=== PATIENT | female | born 1955 | race Two or more races ===

== ENCOUNTER 2021-08-28 11:13 | Outpatient (CLI) | payer OTHER ==
[~2021-08-28 11:13] MED LIST: FOSAMAX5 MG; VITAMIN D10000 UNIT
== END 2021-08-28 11:14 | disposition home or self-care (01) ==
LOC: NUCLEAR 11:13
PROVIDERS: ATTEND Obstetrics & Gynecology
DX: M81.0 Age-related osteoporosis without current pathological fracture (principal); M54.59 Other low back pain; N64.4 Mastodynia